=== PATIENT | female | born 1955 | race Caucasian/White ===

== ENCOUNTER → 2020-10-21 09:03 | Outpatient (CLI) | payer BC, SELFPAY ==
--- NOTE | ~2020-10-21 | MM_ITS ---
EXAMINATION: MM screening [facility] w [facility] HISTORY: Screening mammogram TECHNIQUE: Craniocaudal and mediolateral oblique 3-D tomosynthesis images were obtained and synthetic 2-D images were generated. CAD analysis was submitted and interpreted. COMPARISON: No prior mammogram is available for comparison at this institution. BREAST PARENCHYMAL COMPOSITION: There are scattered areas of fibroglandular density. FINDINGS: There is no evidence of suspicious mass, calcification, or architectural distortion to sugg est malignancy in either breast. There has been no suspicious interval change. IMPRESSION: 1. No mammographic evidence of malignancy. 2. Recommend routine screening mammography in one year. BI-RADS Category 1: Negative Reviewed, dictated and finalized at location A.
== END ==
PROVIDERS: Visit Provider Family Medicine
DX: Z12.31 Encounter for screening mammogram for malignant neoplasm of breast (principal); N60.19 Diffuse cystic mastopathy of unspecified breast
CPT/HCPCS: 77063; 77067

== ENCOUNTER 2021-02-27 09:30 | Outpatient (CLI) | payer BC, SELFPAY ==
--- NOTE | ~2021-02-27 | XR_ITS ---
EXAMINATION: XR knee LT 3V DATE: 02/27/2021 09:58 INDICATION: Left knee pain TECHNIQUE: Three views of the left knee were obtained. COMPARISON: None. FINDINGS: There is mild varus angulation at the knee. There is tricompartmental osteoarthritis, sever e in the lateral compartment and moderate in the patellofemoral and medial compartments. There is no fracture. A large joint effusion is present. IMPRESSION: 1. Osteoarthritis without acute osseous abnormality. 2. Large joint effusion. Reviewed, dictated and finalized at location A.
== END 2021-02-27 09:31 | disposition home or self-care (01) ==
PROVIDERS: PCP Family Medicine; Visit Provider Family Medicine
DX: M25.462 Effusion, left knee (principal); M17.12 Unilateral primary osteoarthritis, left knee
CPT/HCPCS: 73562

== ENCOUNTER 2021-11-22 07:57 | Outpatient (CLI) | payer BC, SELFPAY ==
--- NOTE | 2021-11-22 08:48 | ECG_ITS ---
Measurements Intervals [place] Rate: 63 P: 43 [place]: 167 QRS: 32 QRSD: 82 T: 31 QT: 404 QTc: 417 Interpretive Statements SINUS RHYTHM NO PREVIOUS ECG AVAILABLE FOR COMPARISON Electronically Signed On 11-22-2021 20:49:37 CDT by Shaina Mcgregor M.D.
[2021-11-22 09:20] LABS: Basophils Percent Auto 0.9 % (0.2-1.2); Eosinophils Absolute Auto 0.2 K/mm3 (0-0.3); Eosinophils Percent Auto 3.7 % (0-4.4); Hemoglobin 13.6 g/dL (12.0-15.0); Immature Granulocyte Absolute 0.01 K/mm3 (0.00-0.031); Immature Granulocyte Percent A 0.2 % (0-0.5); Lymphocytes Percent Auto 30.3 % (18.3-44.2); Mean Corpuscular HGB Conc 33.2 g/dl (32-36); Mean Corpuscular Hemoglobin 31.8 pg (26-34); Mean Corpuscular Volume 95.8 fl (80-100); Mean Platelet Volume 9.6 fl (7.4-10.4); Monocytes Absolute Auto 0.4 K/mm3 (0.1-0.6); Neutrophils Absolute Auto 2.6 K/mm3 (1.3-6.7); Neutrophils Percent Auto 56.9 % (45.5-73.1); Platelet Count Result 265 k/mm3 (150-375); Red Blood Count 4.28 M/mm3 (4.2-5.4); Red Cell Distribution Width 13.5 % (11.5-14.5); White Blood Count 4.6 K/mm3 (4.5-10.0)
[2021-11-22 09:25] LABS: Urine Cotinine NEGATIVE
[2021-11-22 09:25] LABS: Albumin Level 4.2 g/dL (3.5-5.1); Estimated Glomerular Filt Rate > 60; Glucose 88 mg/dL (65-110)
[2021-11-22 09:53] LABS: Hemoglobin A1C 5.3 % (<5.7)
== END 2021-11-22 07:58 | disposition home or self-care (01) ==
LOC: ANHSURGERY 08:01
PROVIDERS: PCP Family Medicine; Visit Provider Orthopaedic Surgery
DX: M17.11 Unilateral primary osteoarthritis, right knee (principal); Z01.818 Encounter for other preprocedural examination
CPT/HCPCS: 80307; 82040; 82565; 82947; 83036; 85025; 87081; 93005

== ENCOUNTER 2022-01-07 02:24 | Day surgery (SDC) | payer BC, SELFPAY ==
[2021-11-22 08:07] VITALS: BMI 34.2
--- NOTE | 2021-11-22 08:31 | PC.NURSE ---
Report to the Outpatient Waiting Room, entrance under the green pavilion located off [facility], at time __0600 on date __12/10/21 . OR Time: . - You and your visitor will be asked a series of questions to screen for COVID 19 for your protection. - Only one visitor is allowed at this time. - The patient visitor is requested to leave or wait in car when not with patient. - A mask is required within the hospital. Patients may have clear liquids (water, carbonated beverages, clear teas, apple juice) until 3 hours prior to surgery with a maximum of 20 ounces. - No food from midnight until time of surgery - Infants may have breast milk until 4 hours before surgery, infant formula 6 hours prior to surgery. - Children will be allowed to drink immediately following surgery. If applicable, please bring a bottle or sippy cup to assist with drinking. Juice, water, soda, and popsicles are readily available. For infants on formula, please bring formula the day of surgery. Pacifiers are allowed. Take the following medications with a SIP of water the morning of surgery: ___CITALOPRAM,LEVOTHYROXINE Medications to discontinue per physician VITAMIN D 3 DAYS PRE OP Date to take last dose Please no make-up, nail thai, hairspray, perfume, deodorant, or body powder the day of surgery. No jewelry (including any body piercings) or valuables the day of surgery, leave them at home. Please take a shower or bath the night before, or the morning of, surgery with an antibacterial soap. Wear comfortable, loose fitting clothing. Children are encouraged to wear pajamas. - Jewelry must be removed prior to entering the operating room. Rings and piercings that are not removed may be cut off. - The hospital will not accept responsibility for valuables. - Please leave all valuables, including medications, at home the day of surgery. If you are going home after surgery, a licensed driver examiner must drive you home. - NO public transportation without another adult. - We recommend that an adult stay with you for 24 hours following discharge. - We also recommend that you do not drive, make important decision, drink alcoholic beverages, or take any drugs that were not prescribed by your health care provider for at least 24 hours after your discharge time. Follow any additional instructions given to you from your surgeon. If you or anyone in your household have experienced Covid symptoms in the past week, please notify your surgeon or the nurse liaison at the phone number below for possible testing. VERBAL AND WRITTEN instructions given to _PATIENT and asked if any additional questions and then verbalized understanding. Patient advised to call surgeon office or pre surgery nurse liaison [phone] if any additional questions.
[2021-11-22 08:46] VITALS: BP 145/75; PULSE 66; RESP 18; TEMP 36.7; O2SAT 98
--- NOTE | 2021-12-28 13:42 | PC.NURSE ---
Report to the Outpatient Waiting Room, entrance under the green pavilion located off [facility], at time _0600 on date __01/07/22 . OR Time: __30 . - You and your visitor will be asked a series of questions to screen for COVID 19 for your protection. - Only one visitor is allowed at this time. - The patient visitor is requested to leave or wait in car when not with patient. - A mask is required within the hospital. Patients may have clear liquids (water, carbonated beverages, clear teas, apple juice) until 3 hours prior to surgery with a maximum of 20 ounces. - No food from midnight until time of surgery - Infants may have breast milk until 4 hours before surgery, infant formula 6 hours prior to surgery. - Children will be allowed to drink immediately following surgery. If applicable, please bring a bottle or sippy cup to assist with drinking. Juice, water, soda, and popsicles are readily available. For infants on formula, please bring formula the day of surgery. Pacifiers are allowed. Take the following medications with a SIP of water the morning of surgery: __CITALOPRAM,LEVOTHYROXINE Medications to discontinue per physician VIT D 3 DAYS PRE OP Date to take last dose____01/03/22 Please no make-up, nail greenlandic, hairspray, perfume, deodorant, or body powder the day of surgery. No jewelry (including any body piercings) or valuables the day of surgery, leave them at home. Please take a shower or bath the night before, or the morning of, surgery with an antibacterial soap. Wear comfortable, loose fitting clothing. Children are encouraged to wear pajamas. - Jewelry must be removed prior to entering the operating room. Rings and piercings that are not removed may be cut off. - The hospital will not accept responsibility for valuables. - Please leave all valuables, including medications, at home the day of surgery. If you are going home after surgery, a licensed local truck driver must drive you home. - NO public transportation without another adult. - We recommend that an adult stay with you for 24 hours following discharge. - We also recommend that you do not drive, make important decision, drink alcoholic beverages, or take any drugs that were not prescribed by your health care provider for at least 24 hours after your discharge time. For Pediatric surgeries, we recommend two adults accompany the child home (only one inside the building at this time). Follow any additional instructions given to you from your surgeon. If you or anyone in your household have experienced Covid symptoms in the past week, please notify your surgeon or the nurse liaison at the phone number below for possible testing. Telephone instructions given to ___PATIENT and asked if any additional questions and then verbalized understanding. Patient advised to call surgeon office or pre surgery nurse liaison [phone] if any additional questions.
[2021-12-28 13:51] VITALS: BMI 33.3
--- NOTE | 2021-12-28 13:55 | PC.NURSE ---
PT STATES NO CHANGE IN HEALTH HX SINCE LAST INTERVIEW ON 11/22/21
--- NOTE | 2022-01-04 13:43 | WPDANESEPPF ---
Anes - Initial Pre Proc Eval Procedure: Operation Date: 01/07/22 07:30 Proposed Procedures p Right Total Knee Arthroplasty - Krish Garcia MD Date/Time: 01/04/22 13:43 Surgeon: Krish Garcia MD Pre Op Diagnosis: OA right knee Patient Data Age: 66 Gender: F Height: 1.45 m Weight: 69.85 kg Last Vital Signs Temp 36.7 C 11/22/21 08:46 Pulse 66 11/22/21 08:46 Resp 18 11/22/21 08:46 BP 145/75 H 11/22/21 08:46 Pulse Ox 98 11/22/21 08:46 O2 Del Method Room Air 11/22/21 08:46 Allergies Allergy/AdvReac Type Severity Reaction Status Date / Time No Known Allergies Allergy Mild Verified 01/07/22 06:22 Home Medications Medication Instructions Recorded Confirmed Type citalopram 20 mg tablet 20 mg PO DAILY #30 tabs 09/03/21 01/07/22 Rx ergocalciferol (vitamin D2) 1,250 50,000 unit PO WEEKLY #12 caps 09/03/21 01/07/22 Rx mcg (50,000 unit) capsule tramadol 50 mg tablet 50 mg PO QID PRN pain #28 tabs 09/03/21 01/07/22 Rx levothyroxine 50 mcg tablet 50 mcg PO DAILY 11/22/21 01/07/22 History meloxicam 15 mg tablet 15 mg PO PRN PRN pain 11/22/21 01/07/22 History rivaroxaban 10 mg tablet (Xarelto) 10 mg PO DAILY PE Prophalaxis S/P 11/29/21 12/28/21 Rx Surgery #14 tabs ECG: Date of Service: 11/22/21 Procedure(s): CA 12 lead EKG Accession Number(s): [id number] cc: ~ ? Measurements Intervals? [place]? Rate: ? 63 ? P:? 43 [place]: ? 167? QRS:? 32 QRSD: ? 82 ? T:? 31 QT: ? 404? QTc:? 417? Interpretive Statements SINUS RHYTHM NO PREVIOUS ECG AVAILABLE FOR COMPARISON Electronically Signed On 11-22-2021 20:49:37 CDT by Shaina Mcgregor M.D. Patient hx anesthesia problems: none Family hx anesthesia problems: none Results Review: All pre-operative results and documents have been reviewed as part of the pre-operative evaluation. [facility] Past Medical History Medical History Arthritis Asthma BMI 31.0-31.9,adult BMI 33.0-33.9,adult BMI 34.0-34.9,adult Body mass index (BMI) 35.0-35.9, adult (11/23/18) Colon cancer screening Cologuard neg 08/20/19 COVID (~08/06/21) COVID antibody test positive at 7.42 on 09/03/2021 with recent COVID illness. Exposure to COVID-19 virus (~08/06/21) has been with COVID 1 week ago. Patient evaluated in ER 08/13/2021 Hypothyroidism, unspecified (09/03/21) TSH elevated at 7.06 on 09/03/2021 Primary osteoarthritis of both knees Severe bilateral valgus gonarthrosis Family History Family History Mother Patient's mother is Family history of lung cancer Father Acute myocardial infarction Social History Social History Smoking packs per day: 1 Smoking cigarettes per day: 20.0 Years smoked: 25 Smoking pack-years: 25.00 Smoking status: Former smoker Tobacco type: cigarettes Smoking end date: 07/28/98 Additional smoking assessment comments: DENIES ANY FORM OF TOBACCO USE Alcohol intake: never Substance use: never Substance use type: does not use Living arrangements: with family Gender identity (if verbalized by the patient): Female Spiritual care concerns: No Anes - Eval Final PreProcedure Day of Procedure 01/04/22 13:43 Patient weight: obese Heart: regular rate and rhythm Lungs: clear to auscultation and normal air movement Airway: Mallampati scale class II Neurological: alert and oriented Last oral intake: >/= 8 hours ASA classification: II Emergent: no Anesthetic plan: proceed Anesthesia type and monitoring: general LMA Results Review: Edilberto p
--- NOTE | 2022-01-04 13:45 | WPDANESPNB ---
Anes - Peripheral Nerve Block Date/Time: 01/04/22 13:45 I have discussed with the patient/family/POA the placement of a peripheral nerve block for post-operative pain management, including associated risks, benefits, complications, and side effects. Alternative methods of post-operative analgesia were detailed. Questions were solicited and answers provided to the satisfaction of the patient/family/POA. Time-Out: A pre-procedural Time-Out was completed immediately before starting the procedure and confirmed: Patient Identification, Site, Procedure, Patient Position and the Availability of Requisite Equipment. Clinical Indications: Acute post-operative pain management requested by the operative surgeon. Nerve Block Insertion Note Anes-nerve block: adductor canal Patient position: supine Skin prep: chlorhexidine Needle: 22 gauge, stimulating, insulated echogenic needle. Needle length: 80 mm Technique: ultrasound Technique comment: in plane Injectate: bupivacaine 0.5% with epi 5 mcg/ml (30cc) Observations: tolerated well Complications: none Procedure start time:: 720 Procedure end time:: 725
[2022-01-05 11:30] VITALS: BP 137/82; PULSE 85; RESP 12; TEMP 37.1; O2SAT 99
[2022-01-07] VITALS (11 sets, daily range): BP systolic 94–130; BP diastolic 56–95; PULSE 78–97; RESP 12–21; TEMP 36.3–37.2; O2SAT 96–100
--- NOTE | ~2022-01-07 | XR_ITS ---
EXAMINATION: XR knee RT 2V DATE: 01/07/2022 10:20 INDICATION: Postoperative evaluation following right total knee arthroplasty. TECHNIQUE: Anteroposterior and lateral views of the right knee were obtained. COMPARISON: 03/28/2021 FINDINGS: Right total knee arthroplasty with patellar resurfacing appears well seated. Slight valgus angulation with 85 degrees tibial component angle. Old healed fracture deformity along the posterolateral jennifer n of the lateral tibial plateau. No acute fractures identified. Expected postoperative subcutaneous, intramedullary and intra-articular gas. IMPRESSION: 1. Right total knee arthroplasty, negative for postoperative purposes. Reviewed, dictated and finalized at location A.
[2022-01-07] MEDS: ACETAMINOPHEN 500 MG TABLET 1000 MG PO (06:35)
[2022-01-07] MEDS: LACTATED RINGERS 1,000 ML 30 ML IV CONT ×2 (06:54→10:10)
[2022-01-07] MEDS: TRANEXAMIC ACID 1,000MG/ISO100 1,000 MG/100 ML BAG 200 MG IVPB (07:00)
--- NOTE | 2022-01-07 07:25 | WPDHPUPDATE1 ---
History and Physical Update Update Date/Time: 01/07/22 07:25 History and Physical has been reviewed, including an updated exam of the patient. There are NO changes in the patient's condition. Risks, benefits, and alternatives have been discussed and questions answered. Patient agrees to proceed with procedure.
[2022-01-07] MEDS: ceFAZolin 2 GM/D5W 50 ML 2 GM/50 ML BAG IVPB (07:28)
--- NOTE | 2022-01-07 10:14 | W.PM.PROC2 ---
Procedure Note - Detailed Date of Procedure 01/07/22 Pre-op Diagnosis OA right knee Post-op Diagnosis Same Procedure Performed Right total knee replacement Surgeon Krish Garcia MD Electrician Technician [place] Art Anesthesia General and Regional Description of Procedure The patient was identified and proper site identified. In the preop holding area the anesthesia team performed a right sub sartorial block after which the patient was taken to the operating room and transferred to the OR table positioning supine taking care to pad the torso and extremities. After general anesthetic induction and intubation nonsterile tourniquet was placed high on the right thigh. The right lower extremity was prepped and draped in the usual sterile fashion. The extremity was exsanguinated and with the knee flexed tourniquet was inflated to 300 mmHg remaining up for approximately 66 minutes. An anterior midline incision was made and a modified medial parapatellar approach was used. Infra and suprapatellar fat pads were excised. Patella was resected leaving 15mm thickness and prepared for the size 28 round three peg component. Using the intramedullary guide the distal femur was cut in the proper orientation for the size 60 femoral component. Using the extramedullary guide the tibia was cut perpendicular to the long axis protecting collateral ligaments and popliteal structures. It was sized to a 63. Flexion and extension gaps were balanced. Trial reduction was undertaken and the weight-bearing line was noted to passed through the center of the joint. Proximal tibia was drilled and punched in the proper orientation for the real component. Trial components were removed. The bone surfaces were washed with pulsatile lavage and dried. The real components were cemented simultaneously. The knee was held in extension and the patella held clamped until the cement had cured. Excess cement was removed from the joint. After trialing it was determined that the 10 mm insert gave full range of motion from 0-120 degrees of flexion. An extra-articular lateral release was performed to improve patellar tracking. After the release the patella tracked in the femoral groove with no lift-off. After final lavage the joint the real 10 E poly insert was placed and secured with a locking bar. A Betadine and saline wash was placed into the wound and allowed to sit for approximately 3 minutes and then evacuated. Periarticular tissues were infiltrated with 60 cc of the arthroplasty solution. 1 g of tranexamic acid was left in the wound. The extensor mechanism was repaired with #2 Vicryl suture and 0 looped PDS suture. Subcu was reapproximated with 3-0 Monocryl, 2-0 Quill and tissue adhesive the skin. A sterile dressing was applied. She tolerated the procedure well, was awakened and extubated, transferred to the bed and was taken to recovery area in stable condition. There were no known intraoperative complications. Perioperative antibiotics were administered. Estimated Blood Loss 150 Tourniquet Time 66 Drains No Packing No Pathology None sent Complications No immediate complications Condition Stable Disposition PACU
[2022-01-07] MEDS: fentaNYL CITRATE INJ (*CRX) 100 MCG/2 ML VIAL 25 MCG IV PUSH ×3 (10:23→10:43)
--- NOTE | 2022-01-07 10:29 | SUR.PHASEI ---
oral airway removed at 1012
--- NOTE | 2022-01-07 12:26 | ADMGEN ---
This patient, Leisa Mcbride, was admitted to Medical Room 261-01. Patient/family oriented to hospital policies and general routines including ID bracelet, bed and alarms, visiting hours, pain management, procedures, bathroom and other care routines, personal items, smoking policy, room service/diet, and visiting hours. Information on how to activate the Rapid Response Team has been discussed. Patient/Family are encouraged to report perceived risks to care and to ask questions if they do not understand what they are told or what they should do.
[2022-01-07] MEDS: SODIUM CHLORIDE 0.9% IV 1,000 ML 125 ML IV CONT (12:41)
[2022-01-07] MEDS: KETOROLAC 15 MG/ML VIAL (*BKC) IV PUSH ×3 (12:42→23:51)
[2022-01-07] MEDS: oxyCODONE/ACETAMINOPHEN (*CRX) 5-325 MG TABLET 1 TABLET PO ×3 (13:29→21:00)
[2022-01-07] MEDS: SENNA/DOCUSATE SODIUM TABLET 2 TAB PO (17:29)
[2022-01-08] MEDS: oxyCODONE/ACETAMINOPHEN (*CRX) 5-325 MG TABLET 1 TABLET PO ×3 (00:46→08:55)
[2022-01-08 00:59] VITALS: BP 125/61; PULSE 78; RESP 20; TEMP 36.2; O2SAT 98
[2022-01-08 04:59] VITALS: BP 107/58; PULSE 74; RESP 20; TEMP 36.1; O2SAT 98
[2022-01-08] MEDS: LEVOTHYROXINE SODIUM 50 MCG TABLET PO (06:11)
[2022-01-08] MEDS: KETOROLAC 15 MG/ML VIAL (*BKC) IV PUSH (06:11)
--- NOTE | 2022-01-08 07:16 | PM.DS ---
DS: Admitting Diagnosis Discharge Date 01/08/2022 Admitting Diagnosis Right knee osteoarthritis DS: Discharge Diagnosis Discharge Diagnosis (1) Status post total right knee replacement: Code(s): Z96.651 - Presence of right artificial knee joint Status: Acute (2) Primary osteoarthritis of both knees: Code(s): M17.0 - Bilateral primary osteoarthritis of knee Status: Chronic Plan 66-year-old female who underwent total right knee arthroplasty with Dr. Garcia on 01/07/2022. She was seen by therapy after surgery and plan to see her again today prior to discharge. She will be discharged home and plan to see her in the office in 2 weeks for recheck. She will use a heel lift in the left shoe for stability and start formal therapy in about a week. She was informed to call our office with any further questions or concerns prior to her follow-up appointment. DS: Summary Hospital Course Reason for hospitalization: Observation after outpatient procedure Hospital Course: 66-year-old female admitted for observation after right knee total arthroplasty. She is currently postop day 1. She was seen by therapy yesterday and plan to see her again today prior to discharge. Dressing was changed this morning and there is no drainage to the area. Moderate erythema and bruising around the surgical site but this is expected due to the nature of the procedure. Status at Discharge Functional status at discharge: uses cane/walker Overall status at discharge: patient is progressing back to baseline Time Spent with Patient Time attestation: Total time spent providing and/or coordinating discharge services: Time spent: Less than 30 minutes Exam Const: General: comfortable and no acute distress Eyes: General: appearance normal, both eyes and all related structures Resp: Effort & Inspection: normal respiratory effort Skin: General skin exam: erythema (Right knee) Neuro: Sensory Exam: normal sensation Extrem: Other: Exam of the right knee reveals moderate erythema and bruising to the surgical site. She is able to wiggle her toes without difficulty. Denies any numbness. Calves negative. Neurovascular status of the right lower extremity is unremarkable. Psych: Mental Status: mental status grossly normal DS: Data Data Completed and Pending Labs on day of discharge: Labs from last 24 hours 01/07/22 06:27 Blood Type A Positive Antibody Screen Negative Procedures/Treatments: Right total knee arthroplasty - 01/07/2022 Discharge Plan Discharge Patient Disposition: Home, Self-Care Discharge Instructions: 3 times daily for 20 minutes each time, reclining in bed with ice packs over the incision and a pillow underneath the calf of the affected leg, not under the knee. Your wound is glued so it is okay to remove the dressing, get into the shower and get the wound wet in two days. Be sure to read through all the information that came from a my office and the hospital. Most of the answers you will need can be found that material. Call the office with any questions that you cannot find answers to, or concerns you may have. After the Xarelto is completed, start taking one coated 325 mg aspirin daily and do this for four more weeks. Please call [facility] at as soon as possible to arrange for/verify your follow-up appointment to be seen in 2 weeks. Also, call the office with any orthopedic/surgical related questions prior to follow-up. Be sure to get up and move around several times daily but do not overdo it. Take the arthritis formula Tylenol 650 mg tablet on an 8 hour schedule. A good 8 hour schedule is: 6:00 a.m., 2:00 p.m., 10:00 p.m. you may take the prescribed pain medication along with the Tylenol; it is not to be taken instead of the Tylenol. I would like for you to take the Tylenol on a schedule for 2-3 weeks. You will also be taking Celebrex 100 milligram tablet twice daily for o
--- NOTE | 2022-01-08 08:50 | WPDANESPN ---
Anes - Prog Note Post-Op Date/Time: 01/08/22 08:50 Cardiovascular status: normal Respiratory status: normal Airway patency: baseline Mental status: baseline Post-Op hydration status: normal Vital Signs: Last Vital Signs Temp 36.1 C L 01/08/22 04:59 Pulse 74 01/08/22 04:59 Resp 20 01/08/22 04:59 BP 107/58 L 01/08/22 04:59 Pulse Ox 98 01/08/22 04:59 O2 Del Method Room Air 01/07/22 19:00 O2 Flow Rate 6 01/07/22 10:25 Pain Score (VAS): 3 I/O: Intake & Output 01/07/22 01/08/22 01/08/22 23:59 07:59 15:59 Intake Total 1530 590 240 Output Total 1060 800 Balance 470 -210 240 Post-procedural complaints: none Patient Feedback: Patient satisfied with anesthetic care.
[2022-01-08] MEDS: CITALOPRAM HYDROBROMIDE 20 MG TABLET PO (08:55)
[2022-01-08] MEDS: SENNA/DOCUSATE SODIUM TABLET 2 TAB PO (08:55)
[2022-01-08] MEDS: polyethylene glycoL 3350 17 GM POWD.PACK PO (08:56)
== END 2022-01-08 11:35 | disposition home or self-care (01) ==
LOC: ANHSURGERY 10:14 → ANH2MED 11:18
PROVIDERS: PCP Family Medicine; Visit Provider Orthopaedic Surgery
PROC: (CPT 27447; principal; 2022-01-07 07:30)
DX: M17.11 Unilateral primary osteoarthritis, right knee (principal); G89.18 Other acute postprocedural pain; E03.9 Hypothyroidism, unspecified; Z86.16 Personal history of COVID-19; Z87.891 Personal history of nicotine dependence; E66.9 Obesity, unspecified; Z68.33 Body mass index [BMI] 33.0-33.9, adult
CPT/HCPCS: 27447; 64447; 36415; 73560; 86850; 86900; 86901; 97110; 97116; 97161; 97165; 97530; 97535; A9270; C1713; C1776; J0171; J0690; J1100; J1885; J2250; J2270; J2405; J2704; J2795; J3010; J7030; J7120

== ENCOUNTER 2022-02-13 13:30 | Outpatient (RCR) | payer BC, SELFPAY ==
--- NOTE | 2022-01-14 15:35 | PTOPEVAL ---
PHYSICAL THERAPY INITIAL EVALUATION. Thank you for referring Leisa Mcbride to [facility].? The patient is scheduled to be seen for therapy? 2x/week for 4 weeks. Please review, sign, date and return this plan of care NAVI. I agree with and certify that the following plan of care is medically necessary. Referring Physician Date Attending Provider: Krish Garcia MD *PT Outpatient Evaluation Start: 01/14/22 Evaluation Information Diagnosis R TKA Onset 01/07/22 Subjective Information Pt reports having a R TKA on 6 Query Text:As Reported By Patient. She complains of Family swelling, she states her pain is pretty well controlled at this time. Pt states the air conditioner blowing on her leg will cause 10/10 pain. She states she intermittently uses the walker at home. Pain Assessment Right Knee(s) Reported Pain Level 1 Pain Description Aching,Tightness Pain Frequency Acute,Intermittent Lowest Pain Intensity 1 Greatest Pain Intensity 10 Other Pain Aggravating Factors cold Knee Range of Motion Right Knee Flexion Range of Motion - Active 102 Knee Flexion Range of Motion - Passive 116 Knee Extension Range of Motion - Active 0 Knee Range of Motion Comments L knee -8-0-128 Lower Extremity Muscle Strength Testing Gross Lower Extremity Strength R LAQ 0 deg of extension L LE grossly 4+/5 Palpation Assessment Palpation mild tenderness at medial joint line Balance Assessment Timed Up and Go Test (TUG) (Seconds) 15 Assistive Devices Walker, Wheeled 5 Time Sit to Stand Time in Seconds 18 5 Time Sit to Stand Comments without the use of UEs, RLE Query Text:Normative Data: If Greater places slightly anterior to Than 15 Seconds, 74% Increase Risk for LLE with increased weight Recurrent Falls shift to the L Gait Assessment Ambulation Assistive Devices Walker, Wheeled Gait Pattern Narrow Based Gait Gait Pattern Observed Hyperextended Knee - Left, Hyperextended Knee - Right Other Gait Observations very narrow BECK, mild in toeing citlali 2 Minute Walk Total Distance Walked (feet) 400 2 Minute Walk Gait Speed Score (feet/sec) 3.33 Stair Climbing Assessment Technique Alternating Steps Stair Climbing Direction Both Up and Down Stair Climbing Comments ascends and descends with a reciprocal pattern, decreased medial/lateral cont
--- NOTE | 2022-02-13 14:06 | PTOPEVAL ---
PHYSICAL THERAPY PROGRESS REPORT AND DISCHARGE SUMMARY. Thank you for referring Leisa Mcbride to [facility] The patient is to be discharged from skilled therapy services at this time. Please review, sign, date and return this plan of care NAVI. I agree with and certify that the following plan of care is medically necessary. Referring Physician Date Attending Provider: Krish Garcia MD Evaluation Information Diagnosis R TKA Onset 01/07/22 Subjective Information Pt reports her only pain or Query Text:As Reported By Patient/ soreness is muscle soreness Family after therapy. She carries her cane into the clinic today. She reports no limitations at this time. Pain Assessment Self Report Self Report Pain Level 0 Lower Extremity Range of Motion Knee Range of Motion Right Knee Flexion Range of Motion - Active 128 Knee Flexion Range of Motion - Passive 128 Knee Extension Range of Motion - Active 0 Knee Range of Motion Comments L knee -8-0-128 Lower Extremity Muscle Strength Testing Gross Lower Extremity Strength citlali hip flexion 5/5 citlali knee flexion/extension 5/5 Balance Assessment Time Up Go (TUG) Assistive Devices Walker, Wheeled Comments Initially: 15s with WW 02/13/22: 9s without AD 5 Time Sit to Stand Time in Seconds 12 5 Time Sit to Stand Comments Initially: 18s without the use Query Text:Normative Data: If Greater of UEs, RLE places slightly Than 15 Seconds, 74% Increase Risk for anterior to LLE with increased Recurrent Falls weight shift to the L 02/13/22: 12s without the use of UEs, equal weight distribution Gait Assessment Ambulation Assistive Devices None Gait Pattern Narrow Based Gait Gait Pattern Observed Hyperextended Knee - Right Other Gait Observations very narrow BECK, mild in toeing citlali L>R 2 Minute Walk 2 Minute Walk Test Comments Initially: 400ft (3.33ft/s) with WW 02/13/22: 500ft (4.16ft/s) without AD Stair Climbing Assessment Technique Alternating Steps Stair Climbing Direction Both Up and Down Stair Climbing Comments ascends and descends with a reciprocal pattern, decreased medial/lateral control and eccentric control citlali during descent Safety Assessment Factors Affecting Safety No Concerns General Exercise Exercise Description - reviewed and consolidated Query Text:Record Sets, Reps, HE
== END 2022-03-05 09:52 | disposition home or self-care (01) ==
LOC: ANHPT 13:30
PROVIDERS: PCP Family Medicine; Referring Provider Orthopaedic Surgery; Visit Provider Orthopaedic Surgery
DX: Z47.1 Aftercare following joint replacement surgery (principal); Z96.651 Presence of right artificial knee joint
CPT/HCPCS: 97110; 97112; 97140; 97161; 97530

== ENCOUNTER 2022-04-03 08:22 | Outpatient (CLI) | payer BC, SELFPAY ==
[2022-04-03 08:56] LABS: Basophils Percent Auto 0.7 % (0.2-1.2); Eosinophils Absolute Auto 0.2 K/mm3 (0-0.3); Hemoglobin 13.7 g/dL (12.0-15.0); Immature Granulocyte Absolute 0.02 K/mm3 (0.00-0.031); Immature Granulocyte Percent A 0.3 % (0-0.5); Lymphocytes Absolute Auto 1.86 K/mm3 (0.9-3.2); Lymphocytes Percent Auto 31.5 % (18.3-44.2); Mean Corpuscular HGB Conc 31.9 g/dl (32-36); Mean Corpuscular Volume 97.3 fl (80-100); Mean Platelet Volume 9.2 fl (7.4-10.4); Monocytes Absolute Auto 0.5 K/mm3 (0.1-0.6); Monocytes Percent Auto 7.6 % (2.6-8.5); Neutrophils Absolute Auto 3.4 K/mm3 (1.3-6.7); Neutrophils Percent Auto 56.9 % (45.5-73.1); Platelet Count Result 285 k/mm3 (150-375); Red Blood Count 4.42 M/mm3 (4.2-5.4); Red Cell Distribution Width 12.7 % (11.5-14.5); White Blood Count 5.9 K/mm3 (4.5-10.0)
[2022-04-03 09:04] LABS: Urine Cotinine NEGATIVE
[2022-04-03 09:07] LABS: Hemoglobin A1C 5.4 % (<5.7)
== END 2022-04-03 08:23 | disposition home or self-care (01) ==
LOC: ANHSURGERY 08:28
PROVIDERS: PCP Family Medicine; Visit Provider Orthopaedic Surgery
DX: M17.12 Unilateral primary osteoarthritis, left knee (principal); Z01.818 Encounter for other preprocedural examination
CPT/HCPCS: 80307; 83036; 85025; 86850; 86900; 86901; 87081

== ENCOUNTER 2022-04-08 03:02 | Day surgery (SDC) | payer BC, SELFPAY ==
--- NOTE | 2022-03-28 13:10 | PC.NURSE ---
Report to the Outpatient Waiting Room, entrance under the green pavilion located off [facility], at time _0600 on date _04/08/22 . OR Time: __30 . - You and your visitor will be asked to self-screen and do not enter if you have any COVID symptoms. - Only one visitor and NO children visitors are allowed at this time. - The patient visitor is requested to leave or wait in car when not with patient due to restrictions. - A mask is required within the hospital. Patients may have clear liquids (water, carbonated beverages, clear teas, apple juice) until 3 hours prior to surgery with a maximum of 20 ounces. - No food from midnight until time of surgery - Infants may have breast milk until 4 hours before surgery, infant formula 6 hours prior to surgery. - Children will be allowed to drink immediately following surgery. If applicable, please bring a bottle or sippy cup to assist with drinking. Juice, water, soda, and popsicles are readily available. For infants on formula, please bring formula the day of surgery. Pacifiers are allowed. Take the following medications with a SIP of water the morning of surgery: ___CITALOPRAM AND LEVOTHYROXINE Medications to discontinue per physician VITAMIN D 3 DAY PRE OP Date to take last dose___04/04/22 Please no make-up, nail portuguese, hairspray, perfume, deodorant, or body powder the day of surgery. No jewelry (including any body piercings) or valuables the day of surgery, leave them at home. Please take a shower or bath the night before, or the morning of, surgery with an antibacterial soap. Wear comfortable, loose fitting clothing. Children are encouraged to wear pajamas. - Jewelry must be removed prior to entering the operating room. Rings and piercings that are not removed may be cut off. - The hospital will not accept responsibility for valuables. - Please leave all valuables, including medications, at home the day of surgery. If you are going home after surgery, a licensed wrecker driver must drive you home. - NO public transportation without another adult. - We recommend that an adult stay with you for 24 hours following discharge. - We also recommend that you do not drive, make important decision, drink alcoholic beverages, or take any drugs that were not prescribed by your health care provider for at least 24 hours after your discharge time. For Pediatric surgeries, we recommend two adults accompany the child home (only one inside the building at this time). Follow any additional instructions given to you from your surgeon. If you or anyone in your household have experienced Covid symptoms in the past week, please notify your surgeon or the nurse liaison at the phone number below for possible testing. Telephone instructions given to _PATIENT and asked if any additional questions and then verbalized understanding. Patient advised to call surgeon office or pre surgery nurse liaison [phone] if any additional questions.
[2022-03-28 13:22] VITALS: BMI 33.2
[2022-04-08] VITALS (16 sets, daily range): BP systolic 86–132; BP diastolic 51–84; PULSE 72–111; RESP 12–20; TEMP 36.3–36.9; O2SAT 94–100
--- NOTE | ~2022-04-08 | XR_ITS ---
EXAMINATION: XR knee LT 2V DATE: 04/08/2022 10:09 INDICATION: Total left knee arthroplasty. Postop. TECHNIQUE: 2 views of left knee were obtained. COMPARISON: Left knee radiographs 02/27/2021 FINDINGS: There is a total left knee arthroplasty with patellar resurfacing in near-anatomic alignmen t. No fracture. No periprosthetic lucency to suggest loosening or infection. There is gas in the knee joint and soft tissues, consistent with recent surgery. IMPRESSION: 1. Total left knee arthroplasty in near-anatomic alignment. Reviewed, dictated and finalized at location A.
--- NOTE | 2022-04-08 06:20 | WPDANESEPPF ---
Anes - Initial Pre Proc Eval Procedure: Operation Date: 04/08/22 07:30 Proposed Procedures p Left Total Knee Arthroplasty - Krish Garcia MD Date/Time: 04/08/22 06:20 Surgeon: Krish Garcia MD Pre Op Diagnosis: OA left knee Patient Data Age: 66 Gender: F Height: 1.45 m Weight: 69.6 kg Allergies Allergy/AdvReac Type Severity Reaction Status Date / Time No Known Allergies Allergy Mild Verified 04/02/22 08:53 Home Medications Medication Instructions Recorded Confirmed Type citalopram 20 mg tablet 20 mg PO DAILY #30 tabs 09/03/21 04/02/22 Rx ergocalciferol (vitamin D2) 1,250 50,000 unit PO WEEKLY #12 caps 09/03/21 04/02/22 Rx mcg (50,000 unit) capsule levothyroxine 88 mcg tablet 88 mcg PO DAILY #90 tabs 03/06/22 04/02/22 Rx meloxicam 15 mg tablet 15 mg PO PRN PRN Pain 03/28/22 04/02/22 History tramadol 50 mg tablet 50 mg PO PRN PRN Pain 03/28/22 04/02/22 History rivaroxaban 10 mg tablet (Xarelto) 10 mg PO DAILY PE Prophylaxis s/p 04/02/22 04/02/22 Rx surgery 14 days #14 tabs Patient hx anesthesia problems: none Family hx anesthesia problems: none Results Review: All pre-operative results and documents have been reviewed as part of the pre-operative evaluation. [facility] Past Medical History Medical History Arthritis Asthma BMI 31.0-31.9,adult BMI 33.0-33.9,adult BMI 34.0-34.9,adult Body mass index (BMI) 35.0-35.9, adult (11/23/18) Breast cancer screening by mammogram normal mammogram 10/21/2020. Colon cancer screening Cologuard neg 08/20/19 COVID (~08/06/21) COVID antibody test positive at 7.42 on 09/03/2021 with recent COVID illness. Exposure to COVID-19 virus (~08/06/21) has been with COVID 1 week ago. Patient evaluated in ER 08/13/2021 Hypothyroidism, unspecified (09/03/21) TSH elevated at 7.06 on 09/03/2021. TSH 4.57 on 02/27/2022. Obesity (BMI 30.0-34.9) Primary osteoarthritis of both knees Severe bilateral valgus gonarthrosis Surgical History Surgical History Status post total right knee replacement January 07, 2022 Family History Family History Mother Patient's mother is Family history of lung cancer Father Acute myocardial infarction Social History Social History Smoking packs per day: 1 Smoking cigarettes per day: 20.0 Years smoked: 25 Smoking pack-years: 25.00 Smoking status: Former smoker Tobacco type: cigarettes Smoking end date: 07/27/99 Additional smoking assessment comments: DENIES ANY FORM OF TOBACCO USE Alcohol intake: never Substance use: never Substance use type: does not use Living arrangements: with family Gender identity (if verbalized by the patient): Female Spiritual care concerns: No Anes - Eval Final PreProcedure Day of Procedure 04/08/22 06:20 Patient weight: obese Heart: regular rate and rhythm Lungs: clear to auscultation Airway: Mallampati scale class II Neurological: alert and oriented Last oral intake: >/= 8 hours ASA classification: II Emergent: no Anesthetic plan: proceed Anesthesia type and monitoring: general LMA and standard monitoring Results Review: All pre-operative results and documents have been reviewed as part of the pre-operative evaluation. Informed Consent: The patient's anesthetic plan and its attendant risks and benefits were discussed with the patient/family/POA. Questions were solicited and answers provided to the satisfaction of the patient/family/POA.
--- NOTE | 2022-04-08 06:30 | WPDANESPNB ---
Anes - Peripheral Nerve Block Date/Time: 04/08/22 06:30 I have discussed with the patient/family/POA the placement of a peripheral nerve block for post-operative pain management, including associated risks, benefits, complications, and side effects. Alternative methods of post-operative analgesia were detailed. Questions were solicited and answers provided to the satisfaction of the patient/family/POA. Time-Out: A pre-procedural Time-Out was completed immediately before starting the procedure and confirmed: Patient Identification, Site, Procedure, Patient Position and the Availability of Requisite Equipment. Clinical Indications: Acute post-operative pain management requested by the operative surgeon. Nerve Block Insertion Note Anes-nerve block: adductor canal left Patient position: supine Skin prep: chlorhexidine Needle: 22 gauge, stimulating, insulated echogenic needle. Needle length: 80 mm Technique: ultrasound Injectate: bupivacaine 0.5% with epi 5 mcg/ml (30cc - no epi) Observations: tolerated well Complications: none Procedure start time:: 721 Procedure end time:: 725
[2022-04-08] MEDS: LACTATED RINGERS 1,000 ML 30 ML IV CONT ×2 (06:45→09:55)
[2022-04-08] MEDS: TRANEXAMIC ACID 1,000MG/ISO100 1,000 MG/100 ML BAG 200 MG IVPB (06:46)
[2022-04-08] MEDS: ACETAMINOPHEN 500 MG TABLET 1000 MG PO (06:49)
--- NOTE | 2022-04-08 07:11 | WPDHPUPDATE1 ---
History and Physical Update Update Date/Time: 04/08/22 07:11 History and Physical has been reviewed, including an updated exam of the patient. There are NO changes in the patient's condition. Risks, benefits, and alternatives have been discussed and questions answered. Patient agrees to proceed with procedure.
[2022-04-08] MEDS: ceFAZolin 2 GM/D5W 50 ML 2 GM/50 ML BAG IVPB ×3 (07:30→22:44)
[2022-04-08] MEDS: GENTAMICIN BONE CEMENT REFOBACIN 1 EACH TOPICAL (08:52)
--- NOTE | 2022-04-08 09:53 | P.OP_ITS ---
Procedure Note - Detailed Date of Procedure 04/08/22 Pre-op Diagnosis OA left knee Post-op Diagnosis Same Procedure Performed Left total knee replacement Surgeon Krish Garcia MD Evaluator Transfer Students Masood Burnett Anesthesia General and Regional Description of Procedure The patient was identified and proper site identified. In the preop holding area the anesthesia team performed a left-sided sub sartorial block after which the patient was taken to the operating room and transferred to the OR table positioning supine taking care to pad the torso and extremities. After general anesthetic induction and intubation, a nonsterile tourniquet was placed high on the left thigh. The left lower extremity was prepped and draped in the usual sterile fashion. The extremity was exsanguinated and with the knee flexed tourniquet was inflated to 300 mmHg remaining up for approximately 60 minutes. An anterior midline incision was made and a modified medial parapatellar approach was used. Infra and suprapatellar fat pads were excised. Patella was resected leaving 15 mm thickness and prepared for the size 31 round three peg component. Using the intramedullary guide the distal femur was cut in the proper orientation for the size 60 femoral component. Using the extramedullary guide the tibia was cut perpendicular to the long axis protecting collateral ligaments and popliteal structures. It was sized to a 63. Flexion and extension gaps were balanced. Trial reduction was undertaken and the weight- bearing line was noted to passed through the center of the joint. Proximal tibia was drilled and punched in the proper orientation for the real component. Trial components were removed. The bone surfaces were washed with pulsatile lavage and dried. The real components were cemented simultaneously. The knee was held in extension and the patella held clamped until the cement had cured. Excess cement was removed from the joint. After trialing it was determined that the 12 mm insert gave full range of motion from 0-120degrees of flexion. There is lateral deviation of the patella as the knee was taken range of motion. A lateral release was performed protecting the superior geniculate vessels. After the lateral release, the patella tracked in the femoral groove with no lift-off. After final lavage the joint the real 12 E poly insert was placed and secured with a locking bar. A Betadine and saline wash was placed into the wound and allowed to sit for approximately 3 minutes and then evacuated. Periarticular tissues were infiltrated with 60 cc of the arthroplasty solution. The extensor mechanism was repaired with #2 Vicryl suture and 0 looped PDS suture. Subcu was reapproximated with 3-0 Monocryl, 2-0 Stratafix and tissue adhesive for the skin. A sterile dressing was applied. She tolerated the procedure well, was awakened and extubated, transferred to the bed and was taken to recovery area in stable condition. There were no known intraoperative complications. Perioperative antibiotics were administered. Estimated Blood Loss 150 Drains No Packing No Pathology None sent Complications No immediate complications Condition Stable Disposition PACU
[2022-04-08] MEDS: fentaNYL CITRATE INJ (*CRX) 100 MCG/2 ML VIAL 25 MCG IV PUSH ×8 (10:20→10:34)
[2022-04-08] MEDS: HYDROmorphone HCL INJ (*CRX) 1 MG/ML SYR 0.5 MG IV PUSH ×2 (10:44→10:49)
--- NOTE | 2022-04-08 11:35 | ADMGEN ---
This patient, Leisa Mcbride, was admitted to Medical Room 249-01. Patient/family oriented to hospital policies and general routines including ID bracelet, bed and alarms, visiting hours, pain management, procedures, bathroom and other care routines, personal items, smoking policy, room service/diet, and visiting hours. Information on how to activate the Rapid Response Team has been discussed. Patient/Family are encouraged to report perceived risks to care and to ask questions if they do not understand what they are told or what they should do.
[2022-04-08] MEDS: oxyCODONE/ACETAMINOPHEN (*CRX) 5-325 MG TABLET 2 TABLET PO (13:32)
--- NOTE | 2022-04-08 13:56 | PCOTNOTE ---
Attempted to see pt. for occupational therapy evaluation. Pt. nauseous after PT evaluation and requested break to receive anti-nausea medication. Nursing aware.
--- NOTE | 2022-04-08 15:03 | PCOTNOTE ---
Attempted to see pt. for occupational therapy evaluation. Pt. continues to report she is to nauseated to participate at this time. Nursing updated.
[2022-04-08] MEDS: ONDANSETRON INJ 4 MG/2 ML VIAL IV PUSH (15:18)
[2022-04-08] MEDS: KETOROLAC 15 MG/ML VIAL (*BKC) IV PUSH (18:12)
[2022-04-08] MEDS: oxyCODONE/ACETAMINOPHEN (*CRX) 5-325 MG TABLET 1 TABLET PO ×2 (18:18→20:29)
[2022-04-08] MEDS: FAMOTIDINE 20 MG TABLET PO (20:29)
--- NOTE | 2022-04-09 00:10 | PC.NURSE ---
Pt refusing pain medication because she is feeling nauseous.
[2022-04-09 01:26] VITALS: BP 118/51; PULSE 110; RESP 18; TEMP 36.3; O2SAT 96
[2022-04-09] MEDS: oxyCODONE/ACETAMINOPHEN (*CRX) 5-325 MG TABLET 1 TABLET PO ×2 (05:36→13:40)
[2022-04-09] MEDS: LEVOTHYROXINE SODIUM 88 MCG TABLET PO (05:36)
[2022-04-09 06:00] VITALS: BP 101/57; PULSE 79; RESP 21; TEMP 36.6; O2SAT 100
[2022-04-09] MEDS: ceFAZolin 2 GM/D5W 50 ML 2 GM/50 ML BAG IVPB (06:09)
[2022-04-09] MEDS: ONDANSETRON INJ 4 MG/2 ML VIAL IV PUSH (07:36)
[2022-04-09] MEDS: polyethylene glycoL 3350 17 GM POWD.PACK PO (08:16)
[2022-04-09] MEDS: SENNA/DOCUSATE SODIUM TABLET 2 TAB PO (08:16)
[2022-04-09] MEDS: CITALOPRAM HYDROBROMIDE 20 MG TABLET PO (08:17)
[2022-04-09] MEDS: RIVAROXABAN 10 MG TABLET PO (08:17)
[2022-04-09] MEDS: FAMOTIDINE 20 MG TABLET PO (08:17)
--- NOTE | 2022-04-09 08:24 | PM.DS ---
DS: Admitting Diagnosis Discharge Date 04/09/2022 Admitting Diagnosis Left knee osteoarthritis DS: Discharge Diagnosis Discharge Diagnosis (1) Status post left knee replacement: Code(s): Z96.652 - Presence of left artificial knee joint Status: Acute Plan 66-year-old female underwent left total knee replacement with Dr. Garcia on 04/08/2022. She is feeling quite nauseated secondarily to the pain medications. However, she states she is feeling ready to be discharged home. I would like for her to participate in therapy again today prior to discharge. Postoperative instructions and wound care was discussed with her. She had no further questions. Plan to see her in the office at the 2 week point from surgery for wound check. She was informed to call the office with any further questions or concerns prior to the follow-up appointment. DS: Summary Hospital Course Reason for hospitalization: Observation after outpatient procedure Hospital Course: 66-year-old female admitted for observation after left total knee replacement with Dr. Garcia. She has been feeling nauseated since the surgery due to the pain medications she was given. She would still like to be discharged home today. Plan to do this after participation with therapy. Status at Discharge Functional status at discharge: uses cane/walker Overall status at discharge: patient is progressing back to baseline Time Spent with Patient Time attestation: Total time spent providing and/or coordinating discharge services: Time spent: Less than 30 minutes Exam Const: General: uncomfortable (Nauseated) Eyes: General: appearance normal, both eyes and all related structures Resp: Effort & Inspection: normal respiratory effort GI: Inspection: non-distended Skin: General skin exam: normal color Extrem: Other: Exam of the left knee demonstrates a clean and dry surgical dressing. [id number] amount of swelling to the left knee. Ecchymosis in the lateral compartment. No numbness or tingling down the leg. She is able to plantar flex and dorsiflex the left foot without difficulty. Neurovascular status left lower extremity intact. Calves negative. Psych: Mental Status: mental status grossly normal Discharge Plan Discharge Patient Disposition: Home, Self-Care Discharge Instructions: 3 times daily for 20 minutes each time, reclining in bed with ice packs over the incision and a pillow underneath the calf of the affected leg, not under the knee. Your wound is glued so it is okay to remove the dressing, get into the shower and get the wound wet in two days. Be sure to read through all the information that came from a my office and the hospital. Most of the answers you will need can be found that material. Call the office with any questions that you cannot find answers to, or concerns you may have. After the Xarelto is completed, start taking one coated 325 mg aspirin daily and do this for four more weeks. Please call [facility] at as soon as possible to arrange for/verify your follow-up appointment to be seen in 2 weeks. Also, call the office with any orthopedic/surgical related questions prior to follow-up. Be sure to get up and move around several times daily but do not overdo it. Take the arthritis formula Tylenol 650 mg tablet on an 8 hour schedule. A good 8 hour schedule is: 6:00 a.m., 2:00 p.m., 10:00 p.m. you may take the prescribed pain medication along with the Tylenol; it is not to be taken instead of the Tylenol. I would like for you to take the Tylenol on a schedule for 2-3 weeks. You have also been given a prescription for Celebrex which can be taken for 1 week following surgery. Use the laxative Senekot S twice daily for 2 weeks after discharge while taking the prescription pain medication. Use Miralax once daily for 2 weeks after discharge while taking the prescription pain medication. Once the Xarelto is completed, if you
[2022-04-09 09:38] VITALS: BP 120/68; PULSE 95; RESP 16; TEMP 36.6; O2SAT 97
--- NOTE | 2022-04-09 13:06 | WPDANESPN ---
Anes - Prog Note Post-Op Date/Time: 04/09/22 10:43 Cardiovascular status: normal Respiratory status: normal Airway patency: baseline Mental status: baseline Post-Op hydration status: normal Vital Signs: Last Vital Signs Temp 98 F 04/09/22 09:38 Pulse 95 04/09/22 09:38 Resp 16 04/09/22 09:38 BP 120/68 04/09/22 09:38 Pulse Ox 97 04/09/22 09:38 O2 Del Method Room Air 04/08/22 20:00 O2 Flow Rate 2 04/08/22 11:44 Pain Score (VAS): 7 I/O: Intake & Output 04/08/22 04/09/22 04/09/22 23:59 07:59 15:59 Intake Total 420 600 Output Total 150 800 Balance 270 -200 Post-procedural complaints: nausea Patient Feedback: Patient satisfied with anesthetic care. pt states no relief was provided with PNB.
== END 2022-04-09 14:11 | disposition home or self-care (01) ==
LOC: ANHSURGERY 09:53 → ANH2MED 11:30
PROVIDERS: PCP Family Medicine; Visit Provider Orthopaedic Surgery
PROC: (CPT 27447; principal; 2022-04-08 07:30)
DX: M17.12 Unilateral primary osteoarthritis, left knee (principal); G89.18 Other acute postprocedural pain; E03.9 Hypothyroidism, unspecified; M19.90 Unspecified osteoarthritis, unspecified site; J45.909 Unspecified asthma, uncomplicated; Z86.16 Personal history of COVID-19; Z87.891 Personal history of nicotine dependence; E66.9 Obesity, unspecified; Z68.34 Body mass index [BMI] 34.0-34.9, adult; Z79.01 Long term (current) use of anticoagulants
CPT/HCPCS: 64447; 27447; 73560; 80307; 83036; 85025; 86850; 86900; 86901; 87081; 97110; 97116; 97161; 97165; 97530; 97535; A9270; C1713; C1776; J0171; J0690; J1100; J1170; J1885; J2250; J2270; J2405; J2704; J2795; J3010; J7120

== ENCOUNTER 2022-05-06 14:00 | Outpatient (RCR) | payer BC, SELFPAY ==
--- NOTE | 2022-04-15 14:29 | PTOPEVAL1 ---
Assessment and note entered by Isha Bond, PT Evaluation Information Assessment Status Evaluation Diagnosis s/p L TKR Onset 04-08-22 Subjective Information doing OK since home from hospital; using walker; had R TKR in December, so know the routine; is doing the exercises from the hospital 2x/day--20 reps; using ice, elevating leg and oxycodone1-2 pills/ day; Reported Pain Level Pain Score Self Report range of pain 1-6/10 L knee Additional Pain Score Comments reports activity in home about 10-15 min, then elevate and ice; is able to get comfortable to sleep; Assessment PT Clinical Summary Leisa had L TKR one week ago; she had the other knee replaced about 3 months ago and has done well with it. She is using the wheeled walker and is motivated to be active again. With the evaluation, she has edema and bruising over L knee and leg, with decreased strength of L knee and using a wheeled walker, WBAT. Skilled PT services are indicated to increase the strength and ROM of her L knee; modalities for edema and pain control and education for HEP and progression of gait to lesser or no assistive device. Plan of Care Interventions Electrical Stimulation,Gait Training,Hot Pack/Cold Pack,Intermittent Compression,Manual Therapy, Neuro Re-education,Patient/Caregiver Education, Therapeutic Activities,Therapeutic Exercise,Self- Care/Home Management PT Services Indicated Yes Treatment Frequency and 2x/wk for 3 weeks Duration These treatments will address the objective and functional deficits as defined above. The patient will be advanced safely and appropriately in order for the patient to progress towards his/her prior level of function. Additional exercises will be introduced and as well as a comprehensive home exercise program upon discharge, if needed, ?to ensure carryover of functional gains achieved in the clinic. This treatment plan has been reviewed and agreement upon by the patient.
--- NOTE | 2022-05-06 14:39 | PTOPDC ---
Assessment and note entered by Isha Bond, PT Evaluation Information Assessment Status Discharge Diagnosis s/p L TKR Onset 04-08-22 Subjective Information Micaela reports: more active and walking--went to baseball game is [facility]; is doing whatever she wants to do; can be up and moving for about 1 hour; no issues with her knee; doing the exercises; ready for d/c from PT; Reported Pain Level Pain Score Self Report Additional Pain Score Comments pain range L knee 0-2/10, little achey in knee, goes away with about 10 minutes of resting; can be up and moving about 1 hour; no longer using cane; is not taking any pain meds; puts ice on knee 3-4 x/day and elevates it when resting; Assessment PT Clinical Summary Micaela has received 6 PT sessions. She has improved in all areas: pain rating decreased; flexion of knee to 120'; good gait pattern without assistive device; indep on stairs without hand railing, indep with floor transfer and home exercises; decreased swelling with 3/3 circumferential measurements of knee, ~ 2-3 cm larger than her R knee; The goals were achieved, discharge PT services. Plan of Care PT Services Indicated No
== END 2022-05-07 11:49 | disposition home or self-care (01) ==
LOC: ANHPT 14:00
PROVIDERS: PCP Family Medicine; Visit Provider Orthopaedic Surgery
DX: Z47.1 Aftercare following joint replacement surgery (principal); Z96.652 Presence of left artificial knee joint
CPT/HCPCS: 97014; 97016; 97110; 97161; 97530; G0283

== ENCOUNTER → 2022-05-31 12:49 | Outpatient (CLI) | payer BC, SELFPAY ==
--- NOTE | ~2022-05-31 | MM_ITS ---
EXAMINATION: MM screening [facility]ster BI w shady HISTORY: Screening TECHNIQUE: Craniocaudal and mediolateral oblique 3-D tomosynthesis images were obtained and synthetic 2-D images were generated. CAD analysis was submitted and interpreted. COMPARISON: 10/21/2020 BREAST PARENCHYMAL COMPOSITION: There are scattered areas of fibroglandular density. FINDINGS: There is no evidence of suspicious mass, calcification, or architectural distortion to sugg est malignancy in either breast. There has been no suspicious interval change. IMPRESSION: 1. No mammographic evidence of malignancy. 2. Recommend routine screening mammography in one year. BI-RADS Category 1: Negative Reviewed, dictated and finalized at location A.
== END ==
PROVIDERS: PCP Family Medicine; Visit Provider Family Medicine
DX: Z12.31 Encounter for screening mammogram for malignant neoplasm of breast (principal)
CPT/HCPCS: 77063; 77067

== ENCOUNTER 2024-04-09 08:58 | Outpatient (CLI) | payer BC, SELFPAY ==
--- NOTE | ~2024-04-09 | XR_ITS ---
Left Knee Technique: AP, lateral, and sunrise views were obtained. Clinical History: Arthroplasty COMPARISON: 06/05/2022 Findings: No fracture or dislocation is seen. Left knee arthroplasty in place, unchanged. Soft tissue s are unremarkable. No joint effusion is seen. Impression: No acute abnormality. Left knee arthroplasty. Reviewed, dictated and finalized at location . Impression: No acute abnormality. Left knee arthroplasty.
--- NOTE | ~2024-04-09 | XR_ITS ---
Right Knee Technique: AP, lateral, and sunrise views were obtained. Clinical History: Arthroplasty COMPARISON: 03/05/2022 Findings: No fracture or dislocation is seen. Right knee arthroplasty in place, without evidence of c omplication. Soft tissues are unremarkable. No joint effusion is seen. Impression: No acute abnormality. Right knee arthroplasty in place, unchanged. Reviewed, dictated and finalized at location M. Impression: No acute abnormality. Right knee arthroplasty in place, unchanged.
== END 2024-04-09 08:59 | disposition home or self-care (01) ==
PROVIDERS: PCP Family Medicine; Visit Provider Orthopaedic Surgery
DX: Z96.653 Presence of artificial knee joint, bilateral (principal)
CPT/HCPCS: 73562